=== PATIENT | male | born 1965 | race Hispanic/Latino ===

== ENCOUNTER 2019-02-24 11:40 | Emergency (ER) | payer MEDICARE, MEDICAID ==
[2019-02-24] MEDS ORDERED: PAZEO0.7 % OU (11:54)
[2019-02-24] MEDS ORDERED: ALFUZOSIN HCL E10 MG PO (11:55)
[2019-02-24] MEDS ORDERED: AUGMENTIN875TAB PO (11:56)
[2019-02-24 12:00] VITALS: BP 110/52
== END 2019-02-24 12:00 | disposition home or self-care (01) ==
LOC: ED 11:40
DX: J02.9 Acute pharyngitis, unspecified (principal)

== ENCOUNTER 2021-07-19 23:54 | Emergency (ER) | payer MEDICARE, MEDICAID ==
[~2021-07-19] VITALS: Ht 157.5 cm; Wt 59.0 kg
[~2021-07-19 23:54] MED LIST: ALFUZOSIN HCL E10 MG PO; AUGMENTIN875TAB PO; PAZEO0.7 % OU
[2021-07-20] MEDS ORDERED: CORTISPORIN OTI10 M2 AS (01:59)
[2021-07-20 02:12] VITALS: BP 143/84
== END 2021-07-20 02:16 | disposition home or self-care (01) ==
LOC: ED 23:54
DX: S09.91XA Unspecified injury of ear, initial encounter (principal); X58.XXXA Exposure to other specified factors, initial encounter

== ENCOUNTER 2023-02-11 16:58 | Observation (INO) | payer MEDICARE, OTHER ==
[~2023-02-11] VITALS: Ht 157.5 cm; Wt 63.2 kg
[2023-02-11] VITALS (16 sets, daily range): BP systolic 102–134; BP diastolic 61–81
[~2023-02-11 16:58] MED LIST changes: +CORTISPORIN OTI10 M2 AS
[2023-02-11 17:42] LABS: BASO% 0.6 % (0-3); EOS% 3.5 % (0-8); HEMATOCRIT 42.4 % (39.0-50.0); HEMOGLOBIN 14.1 g/dl (14.0-18.0); IMMATURE GRANULOCYTES 0.2 % (0.0-5.0); LYMPH% 28.3 % (15-41); MEAN CELL VOLUME 89.6 fL CALC (80.0-100.0); MEAN CORPUSCULAR HGB 29.8 pG CALC (26.0-32.0); MEAN CORPUSCULAR HGB CONC 33.3 g/dL CAL (32.0-36.0); MONO% 12.5 % (2-13); NEUT# 3.62 thou/uL (1.82-7.42); NEUT% 54.9 % (42-76); RED BLOOD COUNT 4.73 mill/uL (4.70-6.10); RED CELL DISTRI WIDTH 12.9 % (11.5-15.5)
[2023-02-11 18:00] LABS: ALBUMIN 4.3 g/dL (3.2-5.0); ALKALINE PHOSPHATASE 57 u/l (38-126); ANION GAP 11 (6-22 (CALC)); BILIRUBIN, TOTAL 0.2 mg/dL (0.2-1.3); BUN 19 mg/dL (9-20); BUN/CREATININE RATIO 23 (12-20 (CALC)); CARBON DIOXIDE 26 mmol/l (22-30); CHLORIDE 106 mmol/l (95-108); CREATININE 0.8 mg/dL (0.7-1.3); GFR FOR AFR.AMER. > 60 ML/MIN (>=60 (CALC)); GFR OTHER RACES > 60 ML/MIN (>=60 (CALC)); SGOT/AST 31 u/l (17-59); SODIUM 139 mmol/l (137-146); TOTAL PROTEIN 7.3 g/dL (6.3-8.2)
[2023-02-12 00:10] VITALS: BP 102/61
[2023-02-12 04:46] VITALS: BP 113/70
[2023-02-12 05:31] VITALS: BP 113/70
[2023-02-12 06:35] VITALS: BP 114/71
[2023-02-12] MEDS ORDERED: PROTONIX40 MG PO (10:17)
== END 2023-02-12 11:05 | disposition home or self-care (01) ==
LOC: ED 16:58 → ED-I 19:33 → ED 19:43 → MS2 19:44
PROVIDERS: Family Medicine; ADMIT Internal Medicine; ATTEND Internal Medicine
DX: R07.9 Chest pain, unspecified (principal); K76.0 Fatty (change of) liver, not elsewhere classified
CPT/HCPCS: Q9967